=== PATIENT | female | born 1965 | race Caucasian/White ===

== ENCOUNTER 2022-04-29 04:17 | Day surgery (SDC) | payer BC ==
[2022-04-28 09:59] VITALS: BMI 41.1
[2022-04-29] MEDS ORDERED: LIDOCAINE HCL/PF 2% SDV 5ML VIAL ONE (13:07)
[2022-04-29] MEDS ORDERED: PROPOFOL 20 ML ONE (13:08)
[2022-04-29] MEDS ORDERED: MIDAZOLAM HCL 2 MG/2 ML SINGLE DOSE VIAL ONE (13:08)
[2022-04-29] MEDS ORDERED: SCOPOLAMINE HYDROBROMIDE 1 PATCH PATCH.TD72 ONE (13:13)
[2022-04-29] MEDS ORDERED: BUPIVACAINE HCL/PF 0.5% (5MG/ML) 10 ML VIAL ONE (13:32)
[2022-04-29] MEDS ORDERED: ceFAZolin SODIUM 1 GM VIAL ONE (14:01)
[2022-04-29] MEDS ORDERED: ceFAZolin SODIUM 1 GM VIAL IVPB ONE (14:04)
[2022-04-29] MEDS ORDERED: ACETAMINOPHEN 500 MG TABLET (FP) PO PRN (14:13)
[2022-04-29] MEDS ORDERED: IBUPROFEN 800 MG/8 ML IJ IVPB PRN (14:13)
[2022-04-29] MEDS ORDERED: PROMETHAZINE HCL 25 MG/1 ML VIAL IVPUSH PRN (14:13)
[2022-04-29] MEDS ORDERED: ONDANSETRON 4 MG/2 ML VIAL IVPUSH PRN (14:13)
[2022-04-29] MEDS ORDERED: LACTATED RINGERS SOLUTION 1,000 ML IV SCH (14:15)
[2022-04-29] MEDS ORDERED: ONDANSETRON 4 MG/2 ML VIAL ONE (14:51)
[2022-04-29] MEDS ORDERED: IBUPROFEN 400 MG TABLET (FP) PO PRN (14:52)
[2022-04-29] MEDS ORDERED: ACETAMINOPHEN 325 MG TABLET (FP) PO PRN (14:52)
[2022-04-29 18:45] VITALS: BP 126/61; PULSE 78; RESP 20; TEMP 98.2
== END 2022-04-29 18:57 | disposition home or self-care (01) ==
LOC: JASU-SURG 04:17
PROVIDERS: ATTEND Obstetrics & Gynecology
PROC: 0UDB8ZZ Extraction of Endometrium, Via Natural or Artificial Opening Endoscopic (ICD-10-PCS; principal; 2022-04-29 13:30)
DX: N95.0 Postmenopausal bleeding (principal)
CPT/HCPCS: 88305-TC; 94760

== ENCOUNTER 2023-12-28 11:35 | Emergency (ER) | payer OTHER, BC ==
[2023-12-28 11:41] VITALS: BP 145/78; PULSE 71; RESP 18; TEMP 97.9
[2023-12-28] MEDS ORDERED: FLUORESCEIN NA 1 EA STRIP ONE (14:35)
[2023-12-28] MEDS ORDERED: TETRACAINE 0.5% OPHTH SOLN 2 ML BOTTLE ONE (14:35)
[2023-12-28 14:36] LABS: HIV INTERPRETATION NEGATIVE (NEGATIVE)
[2023-12-28] MEDS: TETRACAINE 0.5% HCL 0.6ML DROPPER.BOTTLE OD ONE (14:45)
[2023-12-28] MEDS: FLUORESCEIN NA 1 EA STRIP OD ONE (14:45)
[2023-12-28] MEDS: POLYMYXIN B SULFATE/TMP 10 ML OPHTHALMIC SOLUTION OD ONE (15:15)
== END 2023-12-28 15:17 | disposition home or self-care (01) ==
LOC: JER 11:35 → JERFT 11:35 → JER 15:17
DX: H57.11 Ocular pain, right eye (principal); H53.149 Visual discomfort, unspecified
CPT/HCPCS: 36415; 86803; 87389; 99283-25